=== PATIENT | female | born 1990 | race American Indian/Alaskan Native ===

== ENCOUNTER 2016-12-25 15:31 | Emergency (ER) | payer MEDICARE ==
[2016-12-25 16:32] LABS: Basophils % (Auto) 0.4 % (0.0-1.8); Eosinophils % (Auto) 2.7 % (0.0-4.3); Mean Corpuscular HGB Conc 30 % (30-34); Platelet Count 307 K/mm3 (140-440); Red Blood Count 4.35 M/mm3 (3.65-5.03); Red Cell Distribution Width 19.9 % (13.2-15.2); White Blood Count 11.8 K/mm3 (4.5-11.0)
[2016-12-25 16:37] LABS: Hematocrit 28.5 % (30.3-42.9); Hemoglobin 8.5 gm/dl (10.1-14.3); Mean Corpuscular Hemoglobin 19 pg (28-32); Mean Corpuscular Volume 66 fl (79-97)
--- NOTE | 2016-12-26 01:47 | Emergency Department Report ---
HPI - General Chief Complaint: Vaginal Bleeding Time Seen by Provider: 12/26/16 01:33 - [facility] HPI: Room 16 The patient is a 26-year-old female presenting with chief complaint of menorrhagia. The patient states she's had heavy vaginal bleeding for approximately one week. The patient states she's gone through approximately 31 pads per day. Patient denies any pain. Patient denies any history of fever. The patient states she has a history of the same and has been placed on oral contraceptives in the past to help curb bleeding. The patient states she has an LAWN SERVICE SUPERVISOR but cannot recall their name at this time Location: Pelvis Duration: Approximately one week Quality: Painless vaginal bleeding Severity: 31 pads per day Modifying factors: [see above] Context: [see above] Mode of transportation: Unknown ED Past Medical Hx - Past Medical History Previous Medical History?: Yes Hx Hypertension: Yes Additional medical history: Anemia. Blood Transfusion 09/2012 - Surgical History Past Surgical History?: No Additional Surgical History: Tonsillectomy, D&C - Family History Family history: no significant - Social History Smoking Status: Never Smoker Substance Use Type: None - Medications Home Medications: Home Medications Medication Instructions Recorded Confirmed Last Taken Type medroxyPROGESTERone ACETATE 10 mg PO QDAY #10 tablet 12/26/16 Unknown Rx [Provera] ED Review of Systems ROS: Stated complaint: HEAVY VAGINAL BLEEDING Other details as noted in HPI Comment: All other systems reviewed and negative Constitutional: denies: chills, fever Eyes: denies: eye pain, eye discharge, vision change ENT: denies: ear pain, throat pain Respiratory: denies: cough, shortness of breath, wheezing Cardiovascular: denies: chest pain, palpitations Endocrine: no symptoms reported Gastrointestinal: denies: abdominal pain, nausea, diarrhea Genitourinary: abnormal menses Musculoskeletal: denies: back pain, joint swelling, arthralgia Skin: denies: rash, lesions Neurological: denies: headache, weakness, paresthesias Psychiatric: denies: anxiety, depression Hematological/Lymphatic: other (heavy vaginal bleeding) Physical Exam - Physical Exam Vital Signs: Vital Signs 12/25/16 12/26/16 15:44 00:26 Temperature 95.8 F L 98.0 F Pulse Rate 95 H 82 Respiratory 18 16 Rate Blood Pressure 141/89 160/107 O2 Sat by Pulse 100 100 Oximetry Physical Exam: GENERAL: The patient is well-developed well-nourished female sitting on stretcher not appear to be in acute distress. [] HEENT: Normocephalic. Atraumatic. Extraocular motions are intact. Patient has moist mucous membranes. NECK: Supple. Trachea midline CHEST/LUNGS: Clear to auscultation. There is no respiratory distress noted. HEART/CARDIOVASCULAR: Regular. There is no tachycardia. There is no gallop rub or murmur. ABDOMEN: Abdomen is soft, nontender. Patient has normal bowel sounds. There is no abdominal distention. SKIN: There is no rash. There is no edema. There is no diaphoresis. NEURO: The patient is awake, alert, and oriented. The patient is cooperative. The patient has normal speech MUSCULOSKELETAL: There is no evidence of acute injury. PELVIS: Small to moderate amount of blood in vaginal vault. No lesions seen ED Course Vital Signs 12/25/16 12/26/16 15:44 00:26 Temperature 95.8 F L 98.0 F Pulse Rate 95 H 82 Respiratory 18 16 Rate Blood Pressure 141/89 160/107 O2 Sat by Pulse 100 100 Oximetry ED Medical Decision Making - Lab Data Result diagrams: 12/25/16 16:09 Laboratory Tests 12/25/16 12/25/16 12/25/16 16:09 16:09 16:09 WBC 11.8 H RBC 4.35 Hgb 8.5 L Hct 28.5 L MCV 66 L MCH 19 L MCHC 30 RDW 19.9 H Plt Count 307 Lymph % (Auto) 34.3 Evans % (Auto) 5.9 Eos % (Auto) 2.7 Baso % (Auto) 0.4 Lymph # 4.1 Evans # 0.7 Eos # 0.3 Baso # 0.0 Seg Neutrophils % 56.7 Seg Neutrophils # 6.7 HCG, Qual Negative HCG, Quant < 2 Blood Type Antibody Screen STEPAN Antibody Screen 12/25/16 16:10 WBC RBC Hgb Hct MCV MCH MCHC RDW Plt Count Lymph % (Auto) Evans % (Auto) Eos % (Auto) Baso % (Auto) Lymph # Evans # Eos # Baso # Seg Neutrophils % Seg Neutrophils # HCG, Qual HCG, Quant Blood Type B POSITIVE Antibody Screen TNR STEPAN Antibody Screen Negative - Radiology Data Radiology results: report reviewed (pelvic ultrasound), image reviewed (pelvic ultrasound) Pelvic ultrasound (read by radiologist)- abnormally thickened endometrial stripe. Follow-up suggested. Nonvisualization of the ovaries. - Differential Diagnosis menorrhagia, spontaneous , uterine fibroids Critical care attestation.: If time is entered above; I have spent that time in minutes in the direct care of this critically ill patient, excluding procedure time. ED Disposition Clinical Impression: Menorrhagia, Anemia Disposition: TO HOME OR SELFCARE Is pt being admited?: No Does the pt Need Aspirin: No Condition: Stable Instructions: Menorrhagia (ED) Additional Instructions: Return to the emergency department immediately should you develop worsening symptoms, fever, inability to tolerate food or liquid or any other concerns. Prescriptions: medroxyPROGESTERone ACETATE [Provera] 10 mg PO QDAY #10 tablet Referrals: PRIMARY CARE, [Primary Care Provider] - 3-5 Days your, LAWN SERVICE SUPERVISOR [Other] - GARY Time of Disposition: 03:15
--- NOTE | 2016-12-26 03:03 | Ultrasound Report ---
FINAL REPORT EXAM: US TRANSVAGINAL HISTORY: menorrhagia TECHNIQUE: Transabdominal and transvaginal sonography of the pelvis. PRIORS: None. FINDINGS: The uterus measures 7.8 x 3.8 x 4.4 cm and appears grossly unremarkable. Small nabothian cysts in the lower uterine segment. The endometrial stripe is abnormally thickened measuring approximately 20 mm in AP dimension. Neither ovary is confidently identified by the electrical test technician. No adnexal masses. Trace free fluid pelvic cul-de-sac. IMPRESSION: 1. Abnormally thickened endometrial stripe. Followup suggested. 2. Nonvisualization of the ovaries.
--- NOTE | 2016-12-26 03:04 | Ultrasound Report ---
FINAL REPORT EXAM: US PELVIC COMPLETE HISTORY: menorrhagia TECHNIQUE: Transabdominal and transvaginal sonography of the pelvis. PRIORS: None. FINDINGS: The uterus measures 7.8 x 3.8 x 4.4 cm and appears grossly unremarkable. Small nabothian cysts in the lower uterine segment. The endometrial stripe is abnormally thickened measuring approximately 20 mm in AP dimension. Neither ovary is confidently identified by the laundry technician. No adnexal masses. Trace free fluid pelvic cul-de-sac. IMPRESSION: 1. Abnormally thickened endometrial stripe. Followup suggested. 2. Nonvisualization of the ovaries.
[2016-12-26 03:10] VITALS: BP 172/88
== END 2016-12-26 03:15 | disposition home or self-care (01) ==
LOC: ED 15:31
DX: N92.0 Excessive and frequent menstruation with regular cycle (principal); D64.9 Anemia, unspecified; I10 Essential (primary) hypertension
CPT/HCPCS: 36415; 76830; 76856; 84702; 84703; 85025; 86850; 86900; 86901

== ENCOUNTER 2017-01-29 04:30 | Emergency (ER) | payer MEDICARE ==
[2017-01-29 05:22] LABS: Basophils % (Auto) 0.5 % (0.0-1.8); Hematocrit 28.9 % (30.3-42.9); Hemoglobin 8.9 gm/dl (10.1-14.3); Mean Corpuscular HGB Conc 31 % (30-34); Platelet Count 338 K/mm3 (140-440); Red Blood Count 4.45 M/mm3 (3.65-5.03); Red Cell Distribution Width 19.6 % (13.2-15.2); White Blood Count 14.1 K/mm3 (4.5-11.0)
[2017-01-29 05:23] LABS: Mean Corpuscular Hemoglobin 20 pg (28-32); Mean Corpuscular Volume 65 fl (79-97)
[2017-01-29 05:25] LABS: Anion Gap 20 mmol/L; Blood Urea Nitrogen 7 mg/dL (7-17); Calcium 9.2 mg/dL (8.4-10.2); Carbon Dioxide 24 mmol/L (22-30); Chloride 99.2 mmol/L (98-107); Glucose 78 mg/dL (65-100); Potassium 3.9 mmol/L (3.6-5.0); Sodium 139 mmol/L (137-145)
[2017-01-29 05:32] LABS: INR 1.17 (0.87-1.13)
[2017-01-29 05:33] LABS: Partial Thromboplastin Time 31.5 Sec. (24.2-36.6)
[2017-01-29 06:18] VITALS: BP 160/87
[2017-01-29 06:23] LABS: Bacteria,Urine 4+ /HPF (Negative); Bilirubin,Urine NEG (Negative); Blood,Urine LG (Negative); Ketones,Urine 20 mg/dL (Negative); Leukocyte Esterase,Urine TR (Negative); Nitrite,Urine NEG (Negative); Urobilinogen,Urine < 2.0 mg/dL (<2.0)
[2017-01-29 06:24] LABS: RBC,Urine > 182.0 /HPF (0.0-6.0)
--- NOTE | 2017-01-29 06:29 | Emergency Department Report ---
ED Female HPI - General Chief complaint: Vaginal Bleeding Stated complaint: HEAVY MENSTRUAL CYCLE Time Seen by Provider: 01/29/17 06:27 Source: patient Mode of arrival: Ambulatory Limitations: No Limitations - History of Present Illness Initial comments: The patient was found asleep in her room. Upon awakening she did not appear to be in any distress. Apparently she was here one month ago for similar symptoms of heavy periods. She tells me that she has a respiratory services manager "in [place]" but does not know their name. She claims that she is taking iron but did not list that as a current medication apparently. She had some suprapubic discomfort and urinary frequency. She denied dysuria and vaginal discharge. She denied fever or chills. MD Complaint: vaginal bleeding -: month(s) Location: suprapubic Radiation: non-radiating Severity: mild, moderate Quality: aching Consistency: intermittent Improves with: none Worsens with: none Are you Now?: No Associated Symptoms: vaginal bleeding - Related Data Previous Rx's Medication Instructions Recorded Last Taken Type medroxyPROGESTERone ACETATE 10 mg PO QDAY #10 tablet 12/26/16 Unknown Rx [Provera] Ferrous Gluconate [Fergon 325 MG 325 mg PO TID #20 tablet 01/29/17 Unknown Rx tab] Nitrofurantoin Vernon/M-Cryst 100 mg PO Q12HR #14 capsule 01/29/17 Unknown Rx [Macrobid CAP] traMADol [Ultram] 50 mg PO Q6HR PRN #10 tablet 01/29/17 Unknown Rx Allergies Allergy/AdvReac Type Severity Reaction Status Date / Time Fish Containing Products Allergy Swelling Verified 12/25/16 15:44 ED Review of Systems ROS: Stated complaint: HEAVY MENSTRUAL CYCLE Other details as noted in HPI Constitutional: denies: chills, fever Eyes: denies: eye pain, eye discharge, vision change ENT: denies: ear pain, throat pain Respiratory: denies: cough, shortness of breath, wheezing Cardiovascular: denies: chest pain, palpitations Endocrine: no symptoms reported Gastrointestinal: abdominal pain. denies: nausea, vomiting, diarrhea, constipation, hematemesis, melena, hematochezia Genitourinary: frequency, abnormal menses. denies: urgency, dysuria, discharge Musculoskeletal: denies: back pain, joint swelling, arthralgia Skin: denies: rash, lesions Neurological: denies: headache, weakness, paresthesias Psychiatric: denies: anxiety, depression Hematological/Lymphatic: denies: easy bleeding, easy bruising ED Past Medical Hx - Past Medical History Previous Medical History?: Yes Hx Hypertension: Yes Additional medical history: Anemia. Blood Transfusion 09/2012 - Surgical History Past Surgical History?: Yes Additional Surgical History: Tonsillectomy, D&C - Social History Smoking Status: Never Smoker Substance Use Type: None - Medications Home Medications: Home Medications Medication Instructions Recorded Confirmed Last Taken Type medroxyPROGESTERone ACETATE 10 mg PO QDAY #10 tablet 12/26/16 Unknown Rx [Provera] Ferrous Gluconate [Fergon 325 MG 325 mg PO TID #20 tablet 01/29/17 Unknown Rx tab] Nitrofurantoin Vernon/M-Cryst 100 mg PO Q12HR #14 capsule 01/29/17 Unknown Rx [Macrobid CAP] traMADol [Ultram] 50 mg PO Q6HR PRN #10 tablet 01/29/17 Unknown Rx ED Physical Exam - General Limitations: No Limitations General appearance: alert, in no apparent distress - Head Head exam: Present: atraumatic, normocephalic - Eye Eye exam: Present: normal appearance. Absent: scleral icterus - ENT ENT exam: Present: mucous membranes moist - Neck Neck exam: Present: normal inspection - Respiratory Respiratory exam: Present: normal lung sounds bilaterally. Absent: respiratory distress - Cardiovascular Cardiovascular Exam: Present: regular rate, normal rhythm. Absent: systolic murmur, diastolic murmur, rubs, gallop - GI/Abdominal GI/Abdominal exam: Present: soft, normal bowel sounds. Absent: distended, tenderness, guarding, rebound, rigid, organomegaly, mass, bruit, pulsatile mass , hernia - Rectal Rectal exam: Present: deferred - Extremities Exam Extremities exam: Present: normal inspection - Back Exam Back exam: Present: normal inspection - Neurological Exam Neurological exam: Present: alert, oriented X3, CN II-XII intact. Absent: motor sensory deficit - Psychiatric Psychiatric exam: Present: normal affect, normal mood - Skin Skin exam: Present: warm, dry, intact, normal color. Absent: rash ED Course Vital Signs 01/29/17 01/29/17 04:36 06:15 Temperature 97.9 F Pulse Rate 83 76 Respiratory 16 18 Rate Blood Pressure 153/100 Blood Pressure 160/87 [Left] O2 Sat by Pulse 98 100 Oximetry - Reevaluation(s) Reevaluation #1: The patient's hemoglobin is stable compared with one month ago. Her urine is quite consistent with a urinary tract infection. She does have an elevated white blood cell count. She will be given Rocephin now her urine will be set up for culture. She is advised to Follow-up with her respiratory services manager. She is discharged in stable condition. 01/29/17 07:01 ED Medical Decision Making - Lab Data Result diagrams: 01/29/17 04:45 01/29/17 04:45 Laboratory Results - last 24 hr 01/29/17 01/29/17 01/29/17 04:45 04:45 04:45 WBC 14.1 H RBC 4.45 Hgb 8.9 L Hct 28.9 L MCV 65 L MCH 20 L MCHC 31 RDW 19.6 H Plt Count 338 Lymph % (Auto) 21.4 Vernon % (Auto) 3.8 Eos % (Auto) 1.0 Baso % (Auto) 0.5 Lymph # 3.0 Vernon # 0.5 Eos # 0.1 Baso # 0.1 Seg Neutrophils % 73.3 H Seg Neutrophils # 10.3 H PT 14.8 INR 1.17 H APTT 31.5 Sodium Potassium Chloride Carbon Dioxide Anion Gap BUN Creatinine Estimated GFR BUN/Creatinine Ratio Glucose Calcium HCG, Quant < 2 Urine Color Urine Turbidity Urine pH Ur Specific [place] Urine Protein Urine Glucose (UA) Urine Ketones Urine Blood Urine Nitrite Urine Bilirubin Urine Urobilinogen Ur Leukocyte Esterase Urine WBC (Auto) Urine RBC (Auto) U Epithel Cells (Auto) Urine Bacteria (Auto) 01/29/17 01/29/17 04:45 05:47 WBC RBC Hgb Hct MCV MCH MCHC RDW Plt Count Lymph % (Auto) Vernon % (Auto) Eos % (Auto) Baso % (Auto) Lymph # Vernon # Eos # Baso # Seg Neutrophils % Seg Neutrophils # PT INR APTT Sodium 139 Potassium 3.9 Chloride 99.2 Carbon Dioxide 24 Anion Gap 20 BUN 7 Creatinine 0.5 L Estimated GFR > 60 BUN/Creatinine Ratio 14.00 Glucose 78 Calcium 9.2 HCG, Quant Urine Color Mary Urine Turbidity Turbid Urine pH 5.0 Ur Specific [place] 1.027 Urine Protein 100 mg/dl Urine Glucose (UA) 50 Urine Ketones 20 Urine Blood Lg Urine Nitrite Neg Urine Bilirubin Neg Urine Urobilinogen < 2.0 Ur Leukocyte Esterase Tr Urine WBC (Auto) 66.0 H Urine RBC (Auto) > 182.0 U Epithel Cells (Auto) 16.0 H Urine Bacteria (Auto) 4+ Critical care attestation.: If time is entered above; I have spent that time in minutes in the direct care of this critically ill patient, excluding procedure time. ED Disposition Clinical Impression: Dysfunctional uterine bleeding, Chronic anemia Acute cystitis Qualifiers: Hematuria presence: with hematuria Qualified Code(s): N30.01 - Acute cystitis with hematuria Disposition: TO HOME OR SELFCARE Is pt being admited?: No Does the pt Need Aspirin: No Condition: Stable Instructions: Urinary Tract Infection in Women (ED), Dysfunctional Uterine Bleeding (ED), Anemia (ED) Additional Instructions: Found to have a urine infection. Antibiotics have been started and you were given a prescription to continue this. Follow-up on your urine culture which takes 2-3 days to result. Follow-up with your respiratory services manager on your abnormal vaginal bleeding. You have anemia and I have prescribed iron. This requires follow-up as well with your respiratory services manager. Return to the emergency department any acute change or problem as needed. Prescriptions: Ferrous Gluconate [Fergon 325 MG tab] 325 mg PO TID #20 tablet Nitrofurantoin Vernon/M-Cryst [Macrobid CAP] 100 mg PO Q12HR #14 capsule traMADol [Ultram] 50 mg PO Q6HR PRN #10 tablet PRN Reason: Pain Referrals: usual, respiratory services manager [Other] - 2-3 Days Time of Disposition: 07:07
[2017-01-29] MEDS ORDERED: ROCEPHIN IM ONE (07:03)
[2017-01-29] MEDS ORDERED: NORCO 5/325 PO ONE (07:03)
[2017-01-29] MEDS ORDERED: XYLOCAINE 1% MPF 5 mL INFILTRATI ONE (07:03)
== END 2017-01-29 08:10 | disposition home or self-care (01) ==
LOC: ED 04:30
DX: N93.8 Other specified abnormal uterine and vaginal bleeding (principal); D64.9 Anemia, unspecified; N30.01 Acute cystitis with hematuria; I10 Essential (primary) hypertension
CPT/HCPCS: 36415; 80048; 81001; 84702; 85025; 85610; 85730; 86850; 86900; 86901; 96372; 99284; J0696

== ENCOUNTER 2018-01-29 23:49 | Emergency (ER) | payer MEDICARE ==
[2018-01-30 00:35] LABS: Basophils # (Auto) 0.2 K/mm3 (0.0-0.1); Basophils % (Auto) 1.2 % (0.0-1.8); Eosinophils # (Auto) 0.2 K/mm3 (0.0-0.4); Eosinophils % (Auto) 1.5 % (0.0-4.3); Hemoglobin 9.9 gm/dl (10.1-14.3); Lymphocytes # (Auto) 3.1 K/mm3 (1.2-5.4); Lymphocytes % (Auto) 23.7 % (13.4-35.0); Mean Corpuscular HGB Conc 32 % (30-34); Monocytes # (Auto) 0.6 K/mm3 (0.0-0.8); Platelet Count 302 K/mm3 (140-440); Red Blood Count 4.51 M/mm3 (3.65-5.03); Red Cell Distribution Width 19.9 % (13.2-15.2)
[2018-01-30 00:40] LABS: Mean Corpuscular Hemoglobin 22 pg (28-32); Mean Corpuscular Volume 69 fl (79-97)
[2018-01-30 00:47] LABS: BUN/Creatinine Ratio 12; Blood Urea Nitrogen 7 mg/dL (7-17); Calcium 9.2 mg/dL (8.4-10.2); Hemolysis Index 1
--- NOTE | 2018-01-30 02:11 | Emergency Department Report ---
HPI - General Chief Complaint: Vaginal Bleeding Time Seen by Provider: 01/30/18 01:53 - HPI HPI: 27-year-old female presents to the emergency department with a complaint of heavy vaginal bleeding. She's been having some abnormal vaginal bleeding since about the 10th of this month. She is going through about 5 or 6 pads per day. Patient does have a history of anemia requiring blood transfusions in the past. She says that she was placed on Provera by her OB/ CT MANAGER at [facility] but despite compliance with her medication she continues to have heavy vaginal bleeding. She has some mild pelvic discomfort. She denies any fever, nausea, vomiting, vaginal discharge, back pain. ED Past Medical Hx - Past Medical History Hx Hypertension: Yes Additional medical history: Anemia, Obesity. Blood Transfusion 09/2012 - Surgical History Additional Surgical History: Tonsillectomy, D&C - Social History Smoking Status: Never Smoker Substance Use Type: None - Medications Home Medications: Home Medications Medication Instructions Recorded Confirmed Last Taken Type medroxyPROGESTERone ACETATE 10 mg PO QDAY #10 tablet 12/26/16 01/30/18 Unknown Rx [Provera] Ferrous Gluconate [Fergon 325 MG 325 mg PO TID #20 tablet 01/29/17 01/30/18 Unknown Rx tab] ED Review of Systems ROS: Stated complaint: VAG BLEEDING Other details as noted in HPI Comment: All other systems reviewed and negative Constitutional: denies: chills, fever Eyes: denies: eye pain, eye discharge, vision change ENT: denies: ear pain, throat pain Respiratory: denies: cough, shortness of breath, wheezing Cardiovascular: denies: chest pain, palpitations Gastrointestinal: denies: abdominal pain, nausea, diarrhea Genitourinary: abnormal menses, other (vaginal bleeding, pelvic pain). denies: dysuria Musculoskeletal: denies: back pain, joint swelling, arthralgia Skin: denies: rash, lesions Neurological: denies: headache, weakness, paresthesias Physical Exam - Physical Exam Vital Signs: Vital Signs 01/29/18 23:47 Temperature 98.4 F Pulse Rate 77 Respiratory 18 Rate Blood Pressure 144/87 O2 Sat by Pulse 96 Oximetry Physical Exam: GENERAL: The patient is well-developed well-nourished. HENT: Normocephalic. Atraumatic. Patient has moist mucous membranes. EYES: Extraocular motions are intact. Pupils equal reactive to light bilaterally. NECK: Supple. Trachea is midline. CHEST/LUNGS: Clear to auscultation. There is no respiratory distress noted. HEART/CARDIOVASCULAR: Regular. There is no tachycardia. There is no murmur. ABDOMEN: Abdomen is soft, nontender. Patient has normal bowel sounds. Obese habitus. SKIN: Skin is warm and dry. NEURO: The patient is awake, alert, and oriented. The patient is cooperative. The patient has no focal neurologic deficits. The patient has normal speech. MUSCULOSKELETAL: There is no tenderness or deformity. There is no limitation range of motion. There is no evidence of acute injury. ED Course Vital Signs 01/29/18 23:47 Temperature 98.4 F Pulse Rate 77 Respiratory 18 Rate Blood Pressure 144/87 O2 Sat by Pulse 96 Oximetry - Consultations Consultation #1: I spoke with Dr. Raquel Palma of [facility] FOAM RUBBER FABRICATOR regarding the patient's heavy vaginal bleeding. She did not feel that the patient's complaint of 5 pads per day was enough bleeding that required any urgent or emergent intervention or any further medications and says that the patient is safe for discharge home and to follow-up in the clinic on Wednesday. 01/30/18 06:06 ED Medical Decision Making - Lab Data Result diagrams: 01/30/18 00:08 01/30/18 00:08 - Radiology Data Radiology results: report reviewed Transvaginal/pelvic ultrasound was unremarkable for any acute process. - Medical Decision Making Patient presented with complaint of 2-3 weeks of heavy vaginal bleeding. She does have history of anemia but currently her hemoglobin is about 10 and does not require any transfusion. She does not appear to complain of any signs of symptomatic anemia. Vital signs are stable including being afebrile. Ultrasound was done that did not show any fibroids, mass or malignancy, or any acute process and was read by radiology as a normal examination. I spoke to the patient's FOAM RUBBER FABRICATOR service who feels that the patient is safe for discharge home to follow-up in the clinic. All the labs, imaging and discussion with the FOAM RUBBER FABRICATOR were discussed with the patient herself and she understands and agrees to the plan. - Differential Diagnosis fibroids, malignancy, , UTI Critical Care Time: No Critical care attestation.: If time is entered above; I have spent that time in minutes in the direct care of this critically ill patient, excluding procedure time. ED Disposition Clinical Impression: Dysfunctional uterine bleeding Menorrhagia Qualifiers: Menorrahagia type: with irregular cycle Qualified Code(s): N92.1 - Excessive and frequent menstruation with irregular cycle Disposition: TO HOME OR SELFCARE Is pt being admited?: No Condition: Stable Instructions: Dysfunctional Uterine Bleeding (ED), Menorrhagia (ED) Additional Instructions: Please follow-up with your FOAM RUBBER FABRICATOR service on Wednesday. Return to the emergency department with any increased vaginal bleeding, especially if you get up to a pad per hour, or with any concerns or acute distress. Referrals: MARCIANO PAREDES MD [Primary Care Provider] - 3-5 Days Time of Disposition: 04:38
[2018-01-30 02:34] VITALS: BP 128/73
--- NOTE | 2018-01-30 04:04 | Ultrasound Report ---
FINAL REPORT EXAM: US PELVIS DUPLEX DOPPLER COMP HISTORY: menorrhagia, pelvic pain TECHNIQUE: Real-time sonography was performed of the pelvis transabdominally and endovaginally. Images are submitted for interpretation. PRIORS: 12/25/2016 FINDINGS: The uterus appears normal measuring 7.7 x 3.7 x 4.4 cm. There are a few nabothian cysts in the cervix. The endometrial stripe appears normal measuring 9 mm. The right ovary appears normal measuring 2.1 x 1.0 x 1.6 cm. The left ovary appears normal measuring 3.6 x 1.7 x 2.8 cm. There is a prominent follicle in the left ovary measuring 2.1 x 0.9 x 1.1 cm. Color Doppler evaluation of the ovaries shows flow bilaterally. There is no free pelvic fluid. IMPRESSION: Normal pelvic ultrasound.
--- NOTE | 2018-01-30 04:05 | Ultrasound Report ---
FINAL REPORT EXAM: US TRANSVAGINAL HISTORY: menorrhagia, pelvic pain TECHNIQUE: Real-time sonography was performed of the pelvis transabdominally and endovaginally. Images are submitted for interpretation. PRIORS: None. FINDINGS: The uterus appears normal measuring 7.7 x 3.7 x 4.4 cm. There are a few nabothian cysts in the cervix. The endometrial stripe appears normal measuring 9 mm. The right ovary appears normal measuring 2.1 x 1.0 x 1.6 cm. The left ovary appears normal measuring 3.6 x 1.7 x 2.8 cm. There is a prominent follicle in the left ovary measuring 2.1 x 0.9 x 1.1 cm. Color Doppler evaluation of the ovaries shows flow bilaterally. There is no free pelvic fluid. IMPRESSION: Normal pelvic ultrasound.
== END 2018-01-30 04:57 | disposition home or self-care (01) ==
LOC: ED 23:49
DX: N93.8 Other specified abnormal uterine and vaginal bleeding (principal); N92.1 Excessive and frequent menstruation with irregular cycle; I10 Essential (primary) hypertension
CPT/HCPCS: 36415; 76830; 80048; 84703; 85025; 86850; 86900; 86901; 93975; 99284

== ENCOUNTER 2018-09-06 01:27 | Emergency (ER) | payer MEDICARE ==
[2018-09-06 01:32] VITALS: BP 157/99
[2018-09-06] MEDS ORDERED: DECADRON IM ONE (01:57)
[2018-09-06] MEDS ORDERED: BENADRYL PO ONE (01:58)
[2018-09-06] MEDS ORDERED: AUGMENTIN 875 MG PO ONE (01:58)
[2018-09-06] MEDS ORDERED: IBUPROFEN PO ONE (01:58)
[2018-09-06 02:01] LABS: Basophils % (Auto) 0.5 % (0.0-1.8); Eosinophils # (Auto) 0.2 K/mm3 (0.0-0.4); Eosinophils % (Auto) 2.7 % (0.0-4.3); Hemoglobin 10.7 gm/dl (10.1-14.3); Lymphocytes # (Auto) 3.7 K/mm3 (1.2-5.4); Lymphocytes % (Auto) 51.5 % (13.4-35.0); Mean Corpuscular HGB Conc 32 % (30-34); Mean Corpuscular Volume 70 fl (79-97); Monocytes # (Auto) 0.4 K/mm3 (0.0-0.8); Monocytes % (Auto) 5.7 % (0.0-7.3); Platelet Count 259 K/mm3 (140-440)
--- NOTE | 2018-09-06 02:02 | Emergency Department Report ---
ED N/V/D HPI - General Chief complaint: Nausea/Vomiting/Diarrhea Stated complaint: VOMITING Time Seen by Provider: 09/06/18 01:54 Source: patient Mode of arrival: Ambulatory Limitations: No Limitations - History of Present Illness Initial comments: pt is a 27 y/o aaf who presents for cough fever sinus and ear pain and pressure x 3 days with associated post nasal drip and n/v symptom exacerbated by movement and position symptom relieved by nothing tried, complaint: nausea, vomiting Onset/Timin -: days(s) Description of Vomiting: other (mucus) Associated Abdominal Pain: No Radiation: none Associated Symptoms: cough, fever/chills, malaise, nausea/vomiting, other (sinus pain postnasal drip ) - Related Data Previous Rx's Medication Instructions Recorded Last Taken Type medroxyPROGESTERone ACETATE 10 mg PO QDAY #10 tablet 12/26/16 Unknown Rx [Provera] Ferrous Gluconate [Fergon 325 MG 325 mg PO TID #20 tablet 01/29/17 Unknown Rx tab] Amoxicillin/Potassium Clav 1 each PO BID 10 Days #20 tablet 09/06/18 Unknown Rx [Augmentin 875-125 Tablet] Fluticasone [Flonase] 1 spray NS QDAY #1 bottle 09/06/18 Unknown Rx Ibuprofen 800 mg PO TID PRN #30 tablet 09/06/18 Unknown Rx diphenhydrAMINE [Benadryl CAP] 25 mg PO Q8HR PRN #30 capsule 09/06/18 Unknown Rx Allergies Allergy/AdvReac Type Severity Reaction Status Date / Time Fish Containing Products Allergy Swelling Verified 12/25/16 15:44 ED Review of Systems ROS: Stated complaint: VOMITING Other details as noted in HPI Constitutional: chills, fever Eyes: denies: eye pain, eye discharge, vision change ENT: ear pain, throat pain, congestion Respiratory: cough. denies: shortness of breath, wheezing Cardiovascular: denies: chest pain, palpitations Endocrine: no symptoms reported Gastrointestinal: nausea, vomiting. denies: abdominal pain Genitourinary: denies: urgency, dysuria, discharge Musculoskeletal: denies: back pain, joint swelling, arthralgia Skin: denies: rash, lesions Neurological: denies: headache, weakness, paresthesias Psychiatric: denies: anxiety, depression Hematological/Lymphatic: as per HPI ED Past Medical Hx - Past Medical History Previous Medical History?: Yes Hx Hypertension: Yes Additional medical history: Anemia, Obesity. Blood Transfusion 09/2012 - Surgical History Past Surgical History?: Yes Additional Surgical History: Tonsillectomy, D&C - Social History Smoking Status: Never Smoker Substance Use Type: None - Medications Home Medications: Home Medications Medication Instructions Recorded Confirmed Last Taken Type medroxyPROGESTERone ACETATE 10 mg PO QDAY #10 tablet 12/26/16 01/30/18 Unknown Rx [Provera] Ferrous Gluconate [Fergon 325 MG 325 mg PO TID #20 tablet 01/29/17 01/30/18 Unknown Rx tab] Amoxicillin/Potassium Clav 1 each PO BID 10 Days #20 tablet 09/06/18 Unknown Rx [Augmentin 875-125 Tablet] Fluticasone [Flonase] 1 spray NS QDAY #1 bottle 09/06/18 Unknown Rx Ibuprofen 800 mg PO TID PRN #30 tablet 09/06/18 Unknown Rx diphenhydrAMINE [Benadryl CAP] 25 mg PO Q8HR PRN #30 capsule 09/06/18 Unknown Rx ED Physical Exam - General Limitations: No Limitations General appearance: alert - Head Head exam: Present: normocephalic, normal inspection - Eye Eye exam: Present: PERRL, EOMI Pupils: Present: normal accommodation - ENT ENT exam: Present: other (bilat frontal and maxillary sinus pain to palpation nose boggy turbinater erythema yellow clear post nasal drip ) - Expanded ENT Exam Expanded Ear exam: Present: normal external inspection TM/Canal exam: Erythema: Right TM, Left TM, Effusion: Left TM, Canal Tenderness: Right TM, Left TM Mouth exam: Present: normal external inspection. Absent: trismus Throat exam: Positive: tonsillar erythema, tonsillomegaly, other (uvula midline no exudate no lesions no stridor ). Negative: tonsillar exudate, R peritonsillar mass, L peritonsillar mass - Neck Neck exam: Present: normal inspection, full ROM, lymphadenopathy. Absent: tenderness, meningismus, thyromegaly - Respiratory Respiratory exam: Present: normal lung sounds bilaterally. Absent: respiratory distress, wheezes, stridor, chest wall tenderness - Cardiovascular Cardiovascular Exam: Present: regular rate, normal rhythm. Absent: systolic murmur, diastolic murmur, rubs, gallop - GI/Abdominal GI/Abdominal exam: Present: soft, normal bowel sounds. Absent: tenderness, rebound, bruit, hernia - Rectal Rectal exam: Present: deferred - Extremities Exam Extremities exam: Present: normal inspection, full ROM, normal capillary refill. Absent: tenderness - Back Exam Back exam: Present: normal inspection, full ROM. Absent: tenderness - Neurological Exam Neurological exam: Present: alert, oriented X3, CN II-XII intact, normal gait - Psychiatric Psychiatric exam: Present: normal affect, normal mood - Skin Skin exam: Present: warm, dry, intact, normal color. Absent: rash ED Course Vital Signs 09/06/18 01:28 Temperature 97.8 F Pulse Rate 107 H Respiratory 18 Rate Blood Pressure 157/99 O2 Sat by Pulse 98 Oximetry ED Medical Decision Making - Lab Data Result diagrams: 09/06/18 01:41 09/06/18 01:41 - Medical Decision Making symptoms improved to 1/10 vomiting likely due to ingestion of post nasal drip as pt is toleration po inake at this time, sinus pain and pressure is relieve plan: dc to home with rx for ibuprofen, augementin benadryl pt will follow up with pcp in 2-3 days return to ed if symptoms worsen. pt verbalized agreement and understanding of discharge plan. pt is currently a/o x 3 ambulatory with steady gait and NAD Critical care attestation.: If time is entered above; I have spent that time in minutes in the direct care of this critically ill patient, excluding procedure time. ED Disposition Clinical Impression: Sinusitis Qualifiers: Sinusitis location: maxillary Chronicity: acute Recurrence: non-recurrent Qualified Code(s): J01.00 - Acute maxillary sinusitis, unspecified URI (upper respiratory infection) Qualifiers: URI type: unspecified viral URI Qualified Code(s): J06.9 - Acute upper respiratory infection, unspecified AOM (acute otitis media) Qualifiers: Otitis media type: serous Laterality: bilateral Recurrence: recurrent Qualified Code(s): H65.06 - Acute serous otitis media, recurrent, bilateral Disposition: DC-01 TO HOME OR SELFCARE Is pt being admited?: No Does the pt Need Aspirin: No Condition: Stable Instructions: Sinusitis (ED), Upper Respiratory Infection (ED), Otitis Media (ED) Prescriptions: Amoxicillin/Potassium Clav [Augmentin 875-125 Tablet] 1 each PO BID 10 Days #20 tablet diphenhydrAMINE [Benadryl CAP] 25 mg PO Q8HR PRN #30 capsule PRN Reason: sinus congestion Fluticasone [Flonase] 1 spray NS QDAY #1 bottle Ibuprofen 800 mg PO TID PRN #30 tablet PRN Reason: pain fever Referrals: LILLI POWERS MD [Primary Care Provider] - 3-5 Days [facility] [Outside] - 3-5 Days Forms: Work/School Release Form(ED) Time of Disposition: 04:10
[2018-09-06 02:21] LABS: Alanine Aminotransferase 17 units/L (7-56); Albumin 4.2 g/dL (3.9-5); BUN/Creatinine Ratio 12; Blood Urea Nitrogen 7 mg/dL (7-17); Calcium 8.9 mg/dL (8.4-10.2); Hemolysis Index 8
[2018-09-07 02:23] LABS: HCG Qualitative,Urine Negative (Negative)
[2018-09-07 02:29] LABS: Color,Urine Yellow (Yellow)
[2018-09-07 02:30] LABS: Bilirubin,Urine Negative (Negative); Blood,Urine Small (Negative)
[2018-09-07 02:36] LABS: Trichomonas,Urine Present /HPF
== END 2018-09-06 04:15 | disposition home or self-care (01) ==
LOC: ED 01:27
DX: J01.00 Acute maxillary sinusitis, unspecified (principal); H65.06 Acute serous otitis media, recurrent, bilateral; I10 Essential (primary) hypertension; Z91.013 Allergy to seafood
CPT/HCPCS: 36415; 80053; 81001; 81025; 85025; 96372; 99284; J1100

== ENCOUNTER 2019-02-08 09:20 | Day surgery (SDC) | payer MEDICARE ==
[2019-02-08] MEDS ORDERED: SUBLIMAZE IV PRN (09:38)
[2019-02-08] MEDS ORDERED: ZOFRAN IV PRN (09:38)
--- NOTE | 2019-02-08 09:39 | Anesthesia Day of Surgery ---
Anesthesia Day of Surgery - Day of Surgery Patient Examined: Yes Patient H&P Reviewed: Yes Patient is NPO: Yes
--- NOTE | 2019-02-08 09:43 | Anesthesia Consultation ---
Anesthesia Consult and Med Hx Date of service: 02/08/19 - Airway Anesthetic Teeth Evaluation: Good ROM Head & Neck: Adequate Mental/Hyoid Distance: Adequate Mallampati Class: Class II Intubation Access Assessment: Probably Good - Pre-Operative Health Status ASA Pre-Surgery Classification: ASA3 Proposed Anesthetic Plan: General - Pulmonary Hx Smoking: No Hx Sleep Apnea: No - Cardiovascular System Hx Hypertension: Yes - Central Nervous System Hx Psychiatric Problems: No - Hematic Hx Anemia: Yes - Other Systems Hx Alcohol Use: No Hx Substance Use: No Hx Cancer: No - Additional Comments Anesthesia Medical History Comments: +Medical Clearance
[2019-02-08] MEDS ORDERED: LACTATED RINGERS 1,000 ML IV SCH (10:00)
[2019-02-08] MEDS ORDERED: ACETIC ACID 3% SOLN TP ONE ×2 (10:47→12:01)
[2019-02-08] MEDS ORDERED: VERSED ONE (10:48)
[2019-02-08] MEDS ORDERED: DIPRIVAN 10 MG/ML IV ONE (10:50)
[2019-02-08] MEDS ORDERED: XYLOCAINE 1%/ EPI 1:100,000 INFILTRATI ONE (10:50)
[2019-02-08] MEDS ORDERED: MONSEL'S TP ONE (10:50)
[2019-02-08] MEDS ORDERED: XYLOCAINE MPF 2% ONE (10:50)
[2019-02-08] MEDS ORDERED: SUBLIMAZE ONE (10:50)
[2019-02-08] MEDS ORDERED: KETALAR ONE (11:45)
--- NOTE | 2019-02-08 12:59 | Operative Report ---
Operative Report Operative Report: Preoperative diagnosis: LGSIL on PAP. Postoperative diagnosis: same Procedure: 1. Colposcopy of the cervix. 2. Biopsy of the cervix. Anesthesia: IV sedation with MAC IVF: 500 cc of RL EBL: negligible Procedure details: The risks, benefits, and alternatives of the procedure were discussed in detail with the patient which included but not limited to infection and bleeding. The patient expressed understanding, her questions answered, and she gave informed consent. The patient was taken to the operating room with an IVF infusing Ringer's lactate. In the operating room, she was placed in the dorsal supine position and given IV sedation with MAC. Then, she was placed on the stirrups in a dorsal lithotomy position. The perineum vagina and cervix were washed and she was prepared and draped in the usual sterile fashion. A speculum was inserted into the vagina. Aceto-acetic acid was applied to the cervix and AW areas were seen at 12, 2, and 9 o'clock. Biopsy and ECC were done. The count of laps and sponges were correct times 2. The patient tolerated the procedure well and she was taken to the recovery room in a stable condition.
[2019-02-08 13:15] VITALS: BP 145/78
--- NOTE | 2019-02-08 17:34 | Post Anesthesia Evaluation ---
- Post Anesthesia Evaluation Patient Participated: Yes Airway Patent: Yes Stable Respiratory Function: Yes Nausea/Vomiting: No Temp > 96.8F: Yes Pain Manageable: Yes Adequeate Hydration: Yes Anesthesia Complications: No Block Receding Appropriately: Not Applicable Patient on Ventilator: No
== END 2019-02-08 13:55 | disposition home or self-care (01) ==
LOC: OR 09:20
PROVIDERS: ATTEND Obstetrics & Gynecology
DX: N72 Inflammatory disease of cervix uteri (principal); R87.612 Low grade squamous intraepithelial lesion on cytologic smear of cervix (LGSIL); I10 Essential (primary) hypertension; Z91.013 Allergy to seafood; Z79.899 Other long term (current) drug therapy; Z90.710 Acquired absence of both cervix and uterus; Z98.890 Other specified postprocedural states; Z86.2 Personal history of diseases of the blood and blood-forming organs and certain disorders involving the immune mechanism
CPT/HCPCS: 36415; 57454; 84132; 84703; 88305; J2250; J2704; J3010; J7120

== ENCOUNTER 2020-03-28 23:29 | Emergency (ER) | payer MEDICARE ==
[2020-03-29 00:45] LABS: Basophils # (Auto) 0.1 K/mm3 (0.0-0.1); Basophils % (Auto) 0.6 % (0.0-1.8); Eosinophils # (Auto) 0.2 K/mm3 (0.0-0.4); Eosinophils % (Auto) 1.1 % (0.0-4.3); Hematocrit 29.3 % (30.3-42.9); Hemoglobin 9.8 gm/dl (10.1-14.3); Lymphocytes # (Auto) 4.5 K/mm3 (1.2-5.4); Lymphocytes % (Auto) 29.1 % (13.4-35.0); Mean Corpuscular HGB Conc 34 % (30-34); Mean Corpuscular Volume 71 fl (79-97); Monocytes # (Auto) 0.8 K/mm3 (0.0-0.8); Monocytes % (Auto) 5.4 % (0.0-7.3); Platelet Count 304 K/mm3 (140-440); Red Blood Count 4.12 M/mm3 (3.65-5.03); Red Cell Distribution Width 17.8 % (13.2-15.2)
--- NOTE | 2020-03-29 00:50 | Emergency Department Report ---
ED Psych HPI - General Chief Complaint: Psych Stated Complaint: PSYCH EVAL Time Seen by Provider: 03/29/20 00:29 Source: patient Mode of arrival: Ambulatory - History of Present Illness Initial Comments: Patient is 29 years old female with history of bipolar disorder. Patient pr esented to the ER after she called hotline stating that she is suicidal. Patient stated that she has been bullied by her old friend via Internet. Patient stated that she have thoughts of killing herself by overdosing on Motrin. Patient also stated that she is hearing voices asking her to kill her self. She denied homicidal ideation. No visual hallucination. MD Complaint: suicidal ideation, feels depressed -: week(s) Associated Psychiatric Symptoms: depression, suicidal ideation, auditory hallucinations Associated Symptoms: denies other symptoms Treatments Prior to Arrival: none If Self Harm: has plan, intentional overdose - Related Data Home Medications Medication Instructions Recorded Confirmed Last Taken amLODIPine 5 mg PO DAILY 02/03/19 02/08/19 02/07/19 09:00 hydroCHLOROthiazide [HCTZ] 12.5 mg [place] DAILY 02/03/19 02/08/19 02/07/19 09:00 Allergies Allergy/AdvReac Type Severity Reaction Status Date / Time Fish Containing Products Allergy Severe Swelling Verified 02/03/19 13:44 shellfish derived AdvReac Severe Shortness Verified 02/03/19 13:44 of Breath ED Review of Systems ROS: Stated complaint: PSYCH EVAL Other details as noted in HPI Comment: All other systems reviewed and negative Constitutional: denies: chills, fever Cardiovascular: denies: chest pain, palpitations Gastrointestinal: denies: abdominal pain, nausea, vomiting, diarrhea, constipation, hematemesis, melena, hematochezia Musculoskeletal: denies: back pain Neurological: denies: headache ED Past Medical Hx - Past Medical History Previous Medical History?: Yes Hx Hypertension: Yes Additional medical history: Anemia, Obesity. Blood Transfusion 09/2012 - Surgical History Past Surgical History?: Yes Additional Surgical History: Tonsillectomy, D&C - Social History Smoking Status: Never Smoker Substance Use Type: None - Medications Home Medications: Home Medications Medication Instructions Recorded Confirmed Last Taken Type amLODIPine 5 mg PO DAILY 02/03/19 02/08/19 02/07/19 09:00 History hydroCHLOROthiazide [HCTZ] 12.5 mg [place] DAILY 02/03/19 02/08/19 02/07/19 09:00 History ED Physical Exam - General Limitations: No Limitations General appearance: alert, in no apparent distress, other (Depressed mood.) - Head Head exam: Present: atraumatic, normocephalic - Eye Eye exam: Present: normal appearance - ENT ENT exam: Present: normal exam, normal orophraynx, mucous membranes moist - Neck Neck exam: Present: normal inspection, full ROM. Absent: tenderness, meningismus, lymphadenopathy, thyromegaly - Respiratory Respiratory exam: Present: normal lung sounds bilaterally - Cardiovascular Cardiovascular Exam: Present: regular rate, normal rhythm, normal heart sounds - GI/Abdominal GI/Abdominal exam: Present: soft, normal bowel sounds. Absent: distended, tenderness, guarding, rebound, rigid, organomegaly, mass, bruit, pulsatile mass, hernia - Extremities Exam Extremities exam: Present: normal inspection, full ROM, normal capillary refill. Absent: tenderness, pedal edema, calf tenderness - Back Exam Back exam: Present: normal inspection, full ROM. Absent: CVA tenderness (R), CVA tenderness (L) - Neurological Exam Neurological exam: Present: alert, oriented X3, CN II-XII intact, normal gait, reflexes normal. Absent: motor sensory deficit - Psychiatric Psychiatric exam: Present: depressed, suicidal ideation. Absent: agitated, anxious, flat affect, manic, homicidal ideation - Skin Skin exam: Present: warm, intact, normal color ED Course Vital Signs 03/29/20 03/29/20 00:10 07:54 Temperature 98.9 F 98.0 F Pulse Rate 91 H 81 Respiratory 18 81 H Rate Blood Pressure 145/74 Blood Pressure 139/98 [Left] O2 Sat by Pulse 97 98 Oximetry ED Medical Decision Making - Lab Data Result diagrams: 03/29/20 00:28 03/29/20 00:28 Critical care attestation.: If time is entered above; I have spent that time in minutes in the direct care of this critically ill patient, excluding procedure time. ED Disposition Clinical Impression: Suicidal ideation Disposition: DC/TX-65 PSY HOSP/PSY UNIT Is pt being admited?: No Condition: Stable Referrals: PRIMARY CARE, [Primary Care Provider] - 3-5 Days
[2020-03-29 00:58] LABS: BUN/Creatinine Ratio 14; Blood Urea Nitrogen 7 mg/dL (7-17); Calcium 9.2 mg/dL (8.4-10.2); Hemolysis Index 3
[2020-03-29 01:00] LABS: Alanine Aminotransferase 7 units/L (7-56); Albumin 4.2 g/dL (3.9-5)
[2020-03-29 01:07] LABS: Amphetamine Screen,Urine PRESUMPTIVE NEGATIVE; Benzodiazepines Screen,Urine PRESUMPTIVE NEGATIVE; Cannabinoid Screen,Urine PRESUMPTIVE NEGATIVE; Cocaine Screen,Urine PRESUMPTIVE NEGATIVE; Methadone Screen,Urine PRESUMPTIVE NEGATIVE; Opiate Screen,Urine PRESUMPTIVE NEGATIVE
[2020-03-29 01:13] LABS: Bilirubin,Direct < 0.2 mg/dL (0-0.2)
[2020-03-29 01:19] LABS: Bilirubin,Urine NEG (Negative); Blood,Urine NEG (Negative); Color,Urine Yellow (Yellow); Mucus,Urine FEW /HPF; Protein,Urine <15 mg/dL mg/dL (Negative); RBC,Urine < 1.0 /HPF (0.0-6.0); Urobilinogen,Urine < 2.0 mg/dL (<2.0)
[2020-03-29 07:56] VITALS: BP 139/98
== END 2020-03-29 15:26 ==
LOC: ED 23:29
DX: R45.851 Suicidal ideations (principal); F32.9 Major depressive disorder, single episode, unspecified; R44.0 Auditory hallucinations; I10 Essential (primary) hypertension; Z90.89 Acquired absence of other organs; Z98.890 Other specified postprocedural states; Z79.899 Other long term (current) drug therapy; Z91.013 Allergy to seafood
CPT/HCPCS: 36415; 80048; 80076; 80307; 80320; 81001; 84703; 85025; G0480